=== PATIENT | female | born 1970 | race Caucasian/White ===

== ENCOUNTER 2016-07-04 18:42 | Emergency (ER) | payer OTHER ==
[~2016-07-04] VITALS: Ht 172.7 cm; Wt 90.7 kg
--- NOTE | 2016-07-04 19:00 | NUR ---
PT STATES SHE HAS BEEN HAVING SUICIDAL THOUGHTS X 1.5 MONTHS AND STATES SHE WANTS TO OVERDOSE ON HEROINE, NO PLAN AT THIS TIME. PT DENIES HI. PT AOX4 COMPLIANT NOT AGITATED. RR EVEN AND UNLABORED. NO SOB NOTED. NAD NOTED. NO NVD AT THIS TIME. PT NOT DIAPHORETIC. PT WAITING FOR MD MITTAL. URINE COLLECTED.
--- NOTE | 2016-07-04 19:11 | NUR ---
LAB AT BEDSIDE FOR BLOOD DRAW.
[2016-07-04 19:12] LABS: BASOPHILS % (AUTO) 0.3 % (0.0-2.0); EOSINOPHILS # (AUTO) 0.1 /CMM (0.0-0.7); EOSINOPHILS % (AUTO) 1.4 % (0.0-6.0); HEMATOCRIT 37 % (33-45); HEMOGLOBIN 12.5 g/dL (11.5-14.8); LYMPHOCYTES % (AUTO) 9.7 % (20.0-44.0); MEAN CORPUSCULAR HEMOGLOBIN 31 PG (26.0-33.0); MEAN CORPUSCULAR HGB CONC 34 g/dl (31.0-36.0); MEAN CORPUSCULAR VOLUME 91 fL (82-100); MONOCYTES # (AUTO) 0.7 /CMM (0.1-1.30); MONOCYTES % (AUTO) 6.4 % (2.0-12.0); NEUTROPHILS # (AUTO) 8.5 /CMM (1.8-8.9); NEUTROPHILS % (AUTO) 82.2 % (43.0-81.0); PLATELET COUNT (AUTO) 355 /CMM (150-450); RDW COEFFICIENT OF VARIATION 12.8 (11.5-15.0); RED BLOOD CELL COUNT(AUTO) 4.05 MIL/uL (4.0-5.2); WHITE BLOOD COUNT (AUTO) 10.3 K/uL (4.3-11.0)
[2016-07-04 19:14] LABS: APPEARANCE,URINE Cloudy (CLEAR); BLOOD, URINE Large Ery/uL (NEGATIVE); COLOR,URINE Dark (YELLOW); KETONES,URINE 15 (NEGATIVE); LEUKOCYTE ESTERASE ,URINE Negative (NEGATIVE); NITRITE, URINE Negative (NEGATIVE); PH,URINE 5.5 (5.0-8.0); PROTEIN,URINE >=300 mg/dl (NEGATIVE); UGLUCOSE Negative (NEGATIVE)
[2016-07-04 19:19] LABS: BILIRUBIN,URINE MODERATE (NEGATIVE)
[2016-07-04 19:22] LABS: CALCIUM, SERUM 8.8 mg/dL (8.5-10.1); CARBON DIOXIDE 26 mmol/L (21-32); CHLORIDE 106 mmol/L (98-107); CREATININE 1.1 mg/dL (0.6-1.3); GFR 54 mL/min (>60); GLUCOSE 138 mg/dL (74-106); POTASSIUM 3.1 mmol/L (3.5-5.1); SODIUM SERUM 141 mmol/L (136-145); UREA NITROGEN, BLOOD 10 mg/dL (7-18)
[2016-07-04 19:28] LABS: ALANINE AMINOTRANSFERASE 30 U/L (12-78); ALBUMIN 3.7 g/dL (3.4-5.0); ALCOHOL, BLOOD < 3 mg/dL (0-0); ALKALINE PHOSPHATASE 115 U/L (46-116); ASPARTATE AMINOTRANSFERASE 25 U/L (15-37); BILIRUBIN,DIRECT 0.1 mg/dL (0.0-0.2); BILIRUBIN,TOTAL 0.4 mg/dL (0.2-1.0); TOTAL PROTEIN, SERUM 7.6 g/dL (6.4-8.2)
[2016-07-04 19:29] LABS: ACETAMINOPHEN < 2 ug/ml (10-30); SALICYLATE < 2.8 mg/dL (2.8-20.0)
[2016-07-04 19:29] LABS: CANNABINOID, URINE NEGATIVE (NEGATIVE); PHENCYCLIDINE SCREEN,URINE NEGATIVE (NEGATIVE)
--- NOTE | 2016-07-04 19:29 | NUR ---
DR HENRY AT BEDSIDE FOR EVAL.
[2016-07-04 19:37] LABS: ADD URINE CULTURE NO; BACTERIA,URINE Few /HPF (None Seen); RBC,URINE 21-50 /HPF (0-2); SQUAMOUS EPITHELIAL CELL,UR Few /HPF (None Seen); WBC,URINE 0-2 /HPF (0-3)
[2016-07-04 19:38] LABS: CALCIUM OXALATE CRYSTALS,UR Few /HPF (None Seen); MUCUS,URINE Many /LPF (None Seen)
--- NOTE | 2016-07-04 21:00 | NUR ---
PT RESTING IN BED IN NO APPARENT DISTRESS VSS, WILL CONTINUE TO MONITOR.
--- NOTE | 2016-07-04 22:20 | NUR ---
PT ACCEPTED TO [facility] BY , NUMBER FOR REPORT IS [phone] (ASK FOR CHARGE NURSE LOTTIE)
--- NOTE | 2016-07-04 22:21 | NUR ---
CALLED [facility] FOR TRANSPORT TO [facility], ETA 90 MIN
--- NOTE | 2016-07-04 23:00 | NUR ---
Patient is resting comfortably in bed with eyes closed. Easily aroused. VSS
[2016-07-04] MEDS ORDERED: POTASSIUM CHLORIDE 20 MEQ TAB.PRT.SR PO ONE (23:07)
--- NOTE | 2016-07-04 23:10 | NUR ---
PT REPORT GIVEN TO PIPPA CATALAN
[2016-07-04] MEDS: POTASSIUM CHLORIDE 20 MEQ TAB.PRT.SR PO ONE (23:11)
--- NOTE | 2016-07-04 23:12 | NUR ---
PT REPORT GIVEN TO EMT
[2016-07-04 23:23] VITALS: BP 140/87
== END 2016-07-04 23:25 | disposition home or self-care (01) ==
LOC: ER 18:47
DX: R45.851 Suicidal ideations (principal); F32.9 Major depressive disorder, single episode, unspecified; F20.9 Schizophrenia, unspecified; F17.200 Nicotine dependence, unspecified, uncomplicated
CPT/HCPCS: 36415; 80048; 80076; 80305; 80329; 81001; 84703; 85025; 99284; A4606; G0480 ×2; Z7610; 81000-TC; G6039-TC

== ENCOUNTER 2016-09-18 00:21 | Emergency (ER) | payer OTHER ==
[~2016-09-18] VITALS: Ht 175.3 cm; Wt 114.8 kg
--- NOTE | 2016-09-18 00:25 | NUR ---
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 PT AOX3. RR EVEN AND UNLABORED. NO SOB NOTED. NAD NOTED. NO NVD AT THIS TIME. PT NOT DIAPHORETIC. PT PLACED ON MONITOR WAITING FOR MD MITTAL.
--- NOTE | 2016-09-18 00:26 | NUR ---
PER RA PLACED IV ON LEFT HAND 20G. LABS DRAWN AND SENT TO LAB.
[2016-09-18] MEDS ORDERED: ACTIVATED CHARCOAL 25 GM/120 ML TUBE PO ONE (00:30)
[2016-09-18 00:41] LABS: BASOPHILS % (AUTO) 0.2 % (0.0-2.0); EOSINOPHILS # (AUTO) 0.1 /CMM (0.0-0.7); EOSINOPHILS % (AUTO) 1.5 % (0.0-6.0); HEMATOCRIT 33 % (33-45); LYMPHOCYTES % (AUTO) 26.7 % (20.0-44.0); MEAN CORPUSCULAR HEMOGLOBIN 31 PG (26.0-33.0); MEAN CORPUSCULAR HGB CONC 34 g/dl (31.0-36.0); MEAN CORPUSCULAR VOLUME 91 fL (82-100); MONOCYTES # (AUTO) 0.4 /CMM (0.1-1.30); NEUTROPHILS # (AUTO) 5.1 /CMM (1.8-8.9); NEUTROPHILS % (AUTO) 66.6 % (43.0-81.0); PLATELET COUNT (AUTO) 293 /CMM (150-450); RDW COEFFICIENT OF VARIATION 14.2 (11.5-15.0); RED BLOOD CELL COUNT(AUTO) 3.57 MIL/uL (4.0-5.2); WHITE BLOOD COUNT (AUTO) 7.6 K/uL (4.3-11.0)
[2016-09-18] MEDS ORDERED: CHARCOAL/SORBITOL SOLUTION 25 G/120 ML TUBE ONE (00:41)
[2016-09-18] MEDS ORDERED: NALOXONE PREFILLED SYRINGE 2 MG/2 ML SYRINGE ONE (00:49)
[2016-09-18 00:57] LABS: ALANINE AMINOTRANSFERASE 27 U/L (12-78); ALBUMIN 3.6 g/dL (3.4-5.0); ALCOHOL, BLOOD < 3 mg/dL (0-0); ALKALINE PHOSPHATASE 86 U/L (46-116); ASPARTATE AMINOTRANSFERASE 21 U/L (15-37); BILIRUBIN,TOTAL 0.3 mg/dL (0.2-1.0); CALCIUM, SERUM 8.7 mg/dL (8.5-10.1); CARBON DIOXIDE 24 mmol/L (21-32); CHLORIDE 107 mmol/L (98-107); CREATININE 0.9 mg/dL (0.6-1.3); GLUCOSE 118 mg/dL (74-106); SALICYLATE 2.6 mg/dL (2.8-20.0); SODIUM SERUM 142 mmol/L (136-145); TOTAL PROTEIN, SERUM 7.1 g/dL (6.4-8.2); UREA NITROGEN, BLOOD 13 mg/dL (7-18)
[2016-09-18 00:58] LABS: ACETAMINOPHEN 0 ug/ml (10-30)
[2016-09-18] MEDS ORDERED: ONDANSETRON HCL/PF 4 MG/2 ML VIAL ONE (00:59)
[2016-09-18 01:00] LABS: POTASSIUM 2.8 mmol/L (3.5-5.1)
[2016-09-18] MEDS ORDERED: ONDANSETRON HCL/PF 4 MG/2 ML VIAL IV ONE (01:00)
[2016-09-18] MEDS ORDERED: NALOXONE HCL 0.4 MG/ML AMPUL IV ONE (01:00)
--- NOTE | 2016-09-18 01:09 | NUR ---
DR. MARIN AT BEDSIDE FOR EVAL.
--- NOTE | 2016-09-18 02:00 | NUR ---
PT ADMITS TO ATTEMPTING TO HURT HERSELF BY OD ON HER RISPERDAL. DR. MARIN MADE AWARE. NO HI NOTED.
[2016-09-18 03:34] LABS: APPEARANCE,URINE CLEAR (CLEAR); BILIRUBIN,URINE NEGATIVE (NEGATIVE); BLOOD, URINE NEGATIVE Ery/uL (NEGATIVE); COLOR,URINE YELLOW (YELLOW); KETONES,URINE NEGATIVE (NEGATIVE); LEUKOCYTE ESTERASE ,URINE NEGATIVE (NEGATIVE); NITRITE, URINE NEGATIVE (NEGATIVE); PROTEIN,URINE NEGATIVE (NEGATIVE); UGLUCOSE NEGATIVE (NEGATIVE); UROBILINOGEN,URINE 0.2 EU/dL (0.2)
[2016-09-18 03:36] LABS: PREGNANCY TEST URINE QUAL NEGATIVE (NEGATIVE)
--- NOTE | 2016-09-18 05:26 | NUR ---
SPOKE TO FLAQUITO FROM POISON CONTROL. PROVIDED UPDATED V/S AND PT CONDITION.
--- NOTE | 2016-09-18 06:00 | NUR ---
Patient is resting comfortably in bed with eyes closed. Easily aroused. VSS
--- NOTE | 2016-09-18 07:14 | NUR ---
REPORT GIVEN TO ALAYNA BHATTI FOR WEI.
--- NOTE | 2016-09-18 09:00 | NUR ---
PT RESTING IN BED COMFORTABLY WITH EYES CLOSED. CONTINUE TO MONITOR.
--- NOTE | 2016-09-18 11:59 | NUR ---
PT RESTING IN BED COMFORTABLY WITH EYES CLOSED. CONTINUE TO MONITOR.
--- NOTE | 2016-09-18 12:35 | NUR ---
PAGED DR MARIE FOR PANEL ADMISSION
--- NOTE | 2016-09-18 12:45 | NUR ---
PT AMBULATORY WITH STEADY GAIT AND SRINIVAS X4, AWARE. JOAO PAGED FOR EVAL.
[2016-09-18] MEDS ORDERED: IV PREMIX D5 1/2NS + KCL 1,000 ML IV ONE ×2 (12:55→13:06)
--- NOTE | 2016-09-18 12:57 | NUR ---
CALLED NURSING SHEET MUSIC SALESPERSON FOR M/S BED
[2016-09-18] MEDS ORDERED: POTASSIUM CHLORIDE 20 MEQ TAB.PRT.SR PO ONE (13:00)
[2016-09-18] MEDS ORDERED: LEVO100T9 PO (13:17)
[2016-09-18] MEDS ORDERED: IBUP-1482 PO (13:17)
[2016-09-18] MEDS ORDERED: RISP0.2515 PO (13:17)
[2016-09-18] MEDS ORDERED: QUET400T PO (13:17)
[2016-09-18] MEDS ORDERED: SERT100T PO (13:17)
[2016-09-18 14:33] VITALS: BP 127/61
== END 2016-09-18 14:36 | disposition home or self-care (01) ==
LOC: ER 00:22
DX: T40.602A Poisoning by unspecified narcotics, intentional self-harm, initial encounter (principal); T43.592A Poisoning by other antipsychotics and neuroleptics, intentional self-harm, initial encounter; F17.200 Nicotine dependence, unspecified, uncomplicated; F31.9 Bipolar disorder, unspecified; R79.89 Other specified abnormal findings of blood chemistry; F20.9 Schizophrenia, unspecified; Y92.89 Other specified places as the place of occurrence of the external cause
CPT/HCPCS: 36415; 80048; 80076; 80305; 80329; 81001; 82962; 84703; 85025; 93005; 96361; 96374; 96375; 99285; A4606; G0480 ×2; J2310; J2405; J3490; Z7610; 81000-TC